=== PATIENT | female | born 1985 ===

== ENCOUNTER → 2019-11-19 | Outpatient (CLI) | payer BC ==
--- NOTE | 2019-11-19 14:59 | KCIC ---
EXAM: CHEST PA LATERAL INDICATION: Reason: CHEST PAIN / Spl. Instructions: Pt had negative Covid. / History: . TECHNIQUE: PA and lateral views COMPARISON: None FINDINGS: The heart size is normal. The great vessels appear unremarkable. There is no hilar or mediastinal mass. The lungs are hypoventilatory. No focal infiltrates are shown.. There is no pleural effusion or pneumothorax. There are no significant osseous abnormalities. IMPRESSION: Low lung volumes with no active cardiopulmonary disease. Electronically signed by: Claire Harper MD (11/19/2019 2:56 PM) [id number]
== END ==
LOC: KCIC 14:26
PROVIDERS: ATTEND Family Medicine
DX: R07.9 Chest pain, unspecified (principal)
CPT/HCPCS: 71046